=== PATIENT | female | born 1965 ===

== ENCOUNTER 2018-10-31 15:24 | Emergency (ER) | payer OTHER ==
[~2018-10-31] VITALS: Ht 175.3 cm; Wt 140.6 kg
[2018-10-31] MEDS ORDERED: LOSARTAN POTAS100 MG PO (15:57)
[2018-10-31] MEDS ORDERED: SYNTHROID75 MCG PO (15:57)
== END 2018-10-31 18:12 | disposition home or self-care (01) ==
LOC: ER 15:24
DX: S80.01XA Contusion of right knee, initial encounter (principal); W01.198A Fall on same level from slipping, tripping and stumbling with subsequent striking against other object, initial encounter; Y93.01 Activity, walking, marching and hiking; Y92.89 Other specified places as the place of occurrence of the external cause; Y99.8 Other external cause status